=== PATIENT | female | born 1955 | race Caucasian/White ===

== ENCOUNTER 2023-06-11 14:31 | Emergency (ER) | payer MEDICAID ==
[~2023-06-11] VITALS: Ht 162.6 cm; Wt 90.7 kg
[2023-06-11 14:54] VITALS: BP 155/53; PULSE 97; RESP 16; TEMP 98.5; O2SAT 98
[2023-06-11] MEDS: ACETAMINOPHEN/CODEINE 300/30MG 1 TAB PO ONE (15:27)
[2023-06-11] MEDS ORDERED: ACET-10509 PO (15:59)
[2023-06-11 16:48] VITALS: BP 145/62; PULSE 88; RESP 16; TEMP 98; O2SAT 99
== END 2023-06-11 16:48 | disposition home or self-care (01) ==
LOC: MED 14:31
DX: S62.002A Unspecified fracture of navicular [scaphoid] bone of left wrist, initial encounter for closed fracture (principal); Z79.1 Long term (current) use of non-steroidal anti-inflammatories (NSAID); W18.2XXA Fall in (into) shower or empty bathtub, initial encounter; Y93.89 Activity, other specified; Y92.89 Other specified places as the place of occurrence of the external cause; Y99.8 Other external cause status
CPT/HCPCS: 73110; 73130; 99284